=== PATIENT | female | born 1945 | race Caucasian/White ===

== ENCOUNTER → 2017-12-10 | Emergency (ER) | payer OTHER ==
[~2017-12-10] VITALS: Ht 160 cm; Wt 62.6 kg
[~2017-12-10] MED LIST: COZAAR50 MG; GLIMEPIRIDE2 MG; ZOCOR20 MG
== END | disposition home or self-care (01) ==
LOC: ER 15:39
DX: G89.11 Acute pain due to trauma (principal); M54.5 Low back pain; M25.511 Pain in right shoulder; M54.2 Cervicalgia; G44.309 Post-traumatic headache, unspecified, not intractable

== ENCOUNTER 2019-02-04 10:08 | Outpatient (CLI) | payer OTHER | END 2019-02-04 10:18 | disposition home or self-care (01) | LOC: RAD 501 10:08 | DX: M54.2 Cervicalgia (principal); M54.6 Pain in thoracic spine ==